=== PATIENT | male | born 1995 | race Hispanic/Latino ===

== ENCOUNTER 2021-03-18 01:08 | Emergency (ER) | payer OTHER ==
[2021-03-18] MEDS ORDERED: ONDANSETRON 4 MG (ODT) TAB ONE (02:39)
--- NOTE | 2021-03-18 03:32 | EDPHYS ---
Physician Documentation [facility] Name: Samuel Maldonado III Age: 25 yrs Sex: Male : 1995 Arrival Date: 03/18/2021 Time: 01:10 Bed 7 Private MD: ED Physician Eddie Randolph HPI: 03/18 01:40 This 25 yrs old Male presents to ER via Wheelchair with complaints of Nose cp Injury. 01:40 The patient or guardian reports pain, swelling, tenderness. The complaints affect the cp right cheek, nose and left cheek. Context of injury: The problem was sustained at a friend's house, resulted from a fall. Onset: The symptoms/episode began/occurred today. 01:40 Associated signs and symptoms: Pertinent positives: laceration of left thumb and use of cp alcohol. Historical: - Allergies: 01:39 No Known Allergies; lp1 - Home Meds: 01:39 None [Active]; lp1 - PMHx: 01:39 None; lp1 - PSHx: 01:39 None; lp1 - Immunization history:: Adult Immunizations up to date. - Social history:: Smoking status: Patient denies any tobacco usage or history of. ROS: 01:45 Constitutional: Negative for body aches, chills, fever, poor PO intake. cp 01:45 ENT: Positive for pain and swelling of nose. cp 01:45 Cardiovascular: Negative for chest pain. 01:45 Respiratory: Negative for shortness of breath. 01:45 Abdomen/GI: Positive for nausea and vomiting, Negative for abdominal pain. 01:45 Skin: Positive for laceration(s), of the cuevas side of left thumb. 01:45 Neuro: Negative for altered mental status, seizure activity. 01:45 All other systems are negative. Exam: 01:50 Constitutional: The patient appears in no acute distress, alert, awake, well developed, cp well nourished, smells of alcohol. 01:50 Head/face: Noted is swelling, that is moderate, of the nose, tenderness, that is cp moderate, of the nose, Sinus tenderness, that is mild, is located over the right maxillary sinus and left maxillary sinus. 01:50 Eyes: Periorbital structures: appear normal, Pupils: equal, round, and reactive to light and accomodation, Extraocular movements: intact throughout, Conjunctiva: normal, no exudate, no injection, Sclera: no appreciated abnormality, Lids and lashes: appear normal, bilaterally. 01:50 ENT: External ear(s): are unremarkable, Ear canal(s): are normal, clear, TM's: dullness, bilaterally, Nose: External nose: deformity is noted, swelling is noted, Nasal septum: deviates to the right, no septal hematoma appreciated, Nasal mucosa: edematous, bleeding, is seen from the right nare, and is minimal, Mouth: Lips: moist, Oral mucosa: pink and intact, moist, Posterior pharynx: Airway: no evidence of obstruction, patent. 01:50 Neck: C-spine: C-collar placed in ED. 01:50 Chest/axilla: Inspection: normal, Palpation: is normal, no crepitus, no tenderness. 01:50 Cardiovascular: Rate: normal, Rhythm: regular. 01:50 Respiratory: the patient does not display signs of respiratory distress, Respirations: normal, no use of accessory muscles, no retractions, labored breathing, is not present, Breath sounds: are clear throughout, no decreased breath sounds, no stridor, no wheezing. 01:50 Abdomen/GI: Inspection: abdomen appears normal, Palpation: abdomen is soft and non-tender, in all quadrants. 01:50 Back: pain, is absent, ROM is normal. 01:50 Neuro: Orientation: to person, place \T\ time. Motor: moves all fours, strength is normal, Sensation: no obvious gross deficits. Vital Signs: 01:38 BP 131 / 97; Pulse 98; Resp 18; Pulse Ox 99% on R/A; Weight 74.84 kg (R); Height 5 ft. lp1 10 in. (177.80 cm); Pain 7/10; 03:57 BP 119 / 71; Pulse 89; Resp 18; Pulse Ox 96% on R/A; lh3 01:38 Body Mass Index 23.67 (74.84 kg, 177.80 cm) lp1 [place] Coma Score: 01:40 Eye Response: spontaneous(4). Verbal Response: oriented(5). Motor Response: obeys cp commands(6). Total: 15. 01:41 Eye Response: spontaneous(4). Verbal Response: oriented(5). Motor Response: obeys lp1 commands(6). Total: 15. Trauma Score (Adult): 01:41 Eye Response: spontaneous(1); Verbal Response: oriented(1); Motor Response: obeys lp1 commands(2); Systolic BP: > 89 mm Hg(4); Respiratory Rate: 10 to 29 per min(4); [place] Score: 15; Trauma Score: 12 MDM: 01:30 Patient medically screened. cp 03:30 Data reviewed: vital signs, nurses notes, radiologic studies, CT scan, and as a result, cp I will discharge patient. 03:30 Counseling: I had a detailed discussion with the patient and/or guardian regarding: the cp historical points, exam findings, and any diagnostic results supporting the discharge/admit diagnosis, radiology results, the need for outpatient follow up, an ENT specialist, to return to the emergency department if symptoms worsen or persist or if there are any questions or concerns that arise at home. 03/18 01:38 Order name: CT Head C Spine cp 03/18 01:38 Order name: CT Facial Bones W/O Con cp 03/18 03:34 Order name: Wound dressing; Complete Time: 03:44 cp Administered Medications: 01:45 Drug: Zofran (Ondansetron) 4 mg Route: PO; lh3 02:47 Follow up: Response: No adverse reaction bs2 Disposition: 03:52 Chart complete. cp 06:42 Co-signature as Attending Physician, Eddie Randolph MD I agree with the assessment and sp3 plan of care. Disposition Summary: 03/18/21 03:31 Discharge Ordered Location: Home cp Problem: new cp Symptoms: have improved cp Condition: Stable cp Diagnosis - Fracture of nasal bones cp - Laceration without foreign body of left thumb without damage to nail, initial cp encounter Followup: cp - With: Vicky Khan MD - When: 2 - 3 days - Reason: nasal bone fracture Discharge Instructions: - Discharge Summary Sheet cp - Nonsutured Laceration Care cp - Nasal Fracture cp Forms: - Medication Reconciliation Form cp - Thank You Letter cp - Antibiotic Education cp - Prescription Opioid Use cp Prescriptions: - Cephalexin 500 mg Oral Capsule - take 1 capsule by ORAL route every 8 hours for 10 days; 30 capsule; Refills: 0, cp Product Selection Permitted - Ibuprofen 800 mg Oral Tablet - take 1 tablet by ORAL route every 8 hours As needed take with food; 30 tablet; cp Refills: 0, Product Selection Permitted Signatures: Dispatcher [employer] Laila Clark, RN RN lp1 Caleb Bose PA PA cp Patel, Setul, MD MD sp3 Amina Ware RN RN lh3 Ely Martinez RN bs2
--- NOTE | 2021-03-18 03:32 | ER ---
Nurse's Notes [facility] Name: Samuel Maldonado III Age: 25 yrs Sex: Male : 1995 Arrival Date: 03/18/2021 Time: 01:10 Bed 7 Private MD: Diagnosis: Fracture of nasal bones;Laceration without foreign body of left thumb without damage to nail, initial encounter Presentation: 03/18 01:30 Acuity: REHANA 2 lp1 01:38 Chief complaint: Parent and/or Guardian states: Mother reports receiving call from lp1 patient's significant other that patient had fallen into a mirror, deformity noted to nose, laceration to left thumb; + ETOH; unknown LOC. Coronavirus screen: At this time, the client does not indicate any symptoms associated with coronavirus-19. Ebola Screen: No symptoms or risks identified at this time. Initial Sepsis Screen: Does the patient meet any 2 criteria? No. Patient's initial sepsis screen is negative. Does the patient have a suspected source of infection? No. Patient's initial sepsis screen is negative. Risk Assessment: Do you want to hurt yourself or someone else? Patient reports no desire to harm self or others. Onset of symptoms was March 18, 2021 at 00:30. 01:38 Method Of Arrival: Wheelchair lp1 Historical: - Allergies: 01:39 No Known Allergies; lp1 - Home Meds: 01:39 None [Active]; lp1 - PMHx: 01:39 None; lp1 - PSHx: 01:39 None; lp1 - Immunization history:: Adult Immunizations up to date. - Social history:: Smoking status: Patient denies any tobacco usage or history of. Screenin:40 Abuse screen: Denies threats or abuse. Denies injuries from another. Nutritional lp1 screening: No deficits noted. Tuberculosis screening: No symptoms or risk factors identified. Fall Risk None identified. Primary Survey: :40 NO uncontrolled hemorrhage observed. A: The patient is alert. Airway: patent, No lp1 supplemental oxygen in use on arrival. Breathing/Chest: Respiratory pattern: regular, Chest inspection: symmetrical rise and fall of the chest. Circulation: Skin temperature: warm, dry. Disability Alert. Exposure/Environment: Obvious injury(ies) are noted at this time: deformity noted to nasal bridge; laceration to left thumb. Assessment: 01:56 Pain: Complains of pain in nose. lh3 03:58 Reassessment: Patient appears in no apparent distress at this time. No changes from lh3 previously documented assessment. Patient and/or family updated on plan of care and expected duration. Pain level reassessed. Patient is alert, oriented x 3, equal unlabored respirations, skin warm/dry/pink. patients wound on left thumb cleaned and dressed. Patient denies pain at this time. Vital Signs: 01:38 BP 131 / 97; Pulse 98; Resp 18; Pulse Ox 99% on R/A; Weight 74.84 kg (R); Height 5 ft. lp1 10 in. (177.80 cm); Pain 7/10; 03:57 BP 119 / 71; Pulse 89; Resp 18; Pulse Ox 96% on R/A; lh3 01:38 Body Mass Index 23.67 (74.84 kg, 177.80 cm) lp1 [place] Coma Score: 01:40 Eye Response: spontaneous(4). Verbal Response: oriented(5). Motor Response: obeys cp commands(6). Total: 15. 01:41 Eye Response: spontaneous(4). Verbal Response: oriented(5). Motor Response: obeys lp1 commands(6). Total: 15. Trauma Score (Adult): 01:41 Eye Response: spontaneous(1); Verbal Response: oriented(1); Motor Response: obeys lp1 commands(2); Systolic BP: > 89 mm Hg(4); Respiratory Rate: 10 to 29 per min(4); [place] Score: 15; Trauma Score: 12 ED Course: 01:10 Patient arrived in ED. bp1 01:25 Caleb Bose PA is PHCP. cp 01:25 Eddie Randolph MD is Attending Physician. cp 01:30 Triage completed. lp1 01:38 Rigid cervical collar applied and checked by physician. lp1 01:39 Arm band placed on. lp1 01:40 Patient has correct armband on for positive identification. lp1 01:41 Patient maintains SpO2 saturation greater than 95% on room air. lp1 02:00 Inserted saline lock: 20 gauge in right forearm, using aseptic technique. Blood lh3 collected. 02:38 CT Facial Bones W/O Con In Process Unspecified. EDMS 02:38 CT Head C Spine In Process Unspecified. EDMS 03:30 Vicky Khan MD is Referral Physician. cp 03:57 No provider procedures requiring assistance completed. lh3 03:57 IV discontinued, intact, bleeding controlled, No redness/swelling at site. Pressure lh3 dressing applied. Administered Medications: 01:45 Drug: Zofran (Ondansetron) 4 mg Route: PO; lh3 02:47 Follow up: Response: No adverse reaction bs2 Outcome: 03:31 Discharge ordered by MD. cp 03:57 Discharged to home ambulatory, with family. lh3 03:57 Condition: good 03:57 Discharge instructions given to patient, family, Instructed on discharge instructions, medication usage, Demonstrated understanding of instructions, follow-up care, medications, Prescriptions given X 2. 03:59 Patient left the ED. 3 Signatures: Dispatcher [employer] EDW[place] Laila Villatoro RN RN lp1 Caleb Bose PA PA cp Anabel Flood Bridget, RN RN bs2 Amina Ware RN RN lh3 Corrections: (The following items were deleted from the chart) 01:39 01:38 Chief complaint: Parent and/or Guardian states: Mother reports receiving call lp1 from patient's significant other that patient had fallen into a mirror, deformity noted to nose, laceration to left thumb; + ETOH lp1
[2021-03-18 04:06] VITALS: BP 119/71; O2SAT 96
--- NOTE | 2021-03-18 12:00 | RAD REPORT ---
EXAM DESCRIPTION: CT - [id number] - 03/18/2021 6:06 am COMPARISON: None. CLINICAL HISTORY: [facility] MAIN PAIN TECHNIQUE: Axial images were obtained from skull base to vertex without intravenous contrast. Imag es viewed on bone and brain windows. Multiplanar reformats were performed. Automated exposure contr ol was utilized on this examination as a dose lowering technique. FINDINGS: Brain parenchyma, ventricles, dura, meninges, and extra-axial spaces: Ventricles and sulci are normal. No abnormal attenuation of brain parenchyma is present. No acute intracranial hemor rhage or abnormal extra-axial fluid collections are present. Vascular structures: No hyperdense arteries or veins. Calvarium, mastoid air cells, paranasal sinuses and orbits: The calvarium is normal. The mastoid air cells are clear. Visualized paranasal sinuses are unremarkable. Orbital structures are unremarkable. EXAM DESCRIPTION: CT Maxillofacial COMPARISON: None. CLINICAL HISTORY: [facility] MAIN PAIN TECHNIQUE: High resolution axial CT images are obtained through the maxillofacial bones without intr avenous contrast followed by multiplanar reformats. Automated exposure control was utilized on this e xamination as a dose lowering technique. FINDINGS: Maxillofacial bones and mandible: Mildly displaced bilateral nasal bone fractures. Orbital structures: Unremarkable. Paranasal sinuses: Clear. Soft tissues: Bilateral paranasal contusions. Visualized intracranial structures: The visualized structures of the skull base are normal. Visualize d intracranial structures are normal. EXAM DESCRIPTION: CT Cervical Spine COMPARISON: None. CLINICAL HISTORY: [facility] MAIN PAIN TECHNIQUE: Axial CT images were obtained through the entire cervical spine without contrast. Sagit jamie and coronal reconstructions are provided. Automated exposure control was utilized on this examina tion as a dose lowering technique. FINDINGS: Vertebrae: Vertebral statures and alignment are normal. No acute fracture, dislocation o r destructive osseous process is present. Spinal canal, foramina, and facet joints: No significant spinal canal or foraminal stenoses. No significant facet arthropathy. Paraspinous soft-tissues: Normal. Thyroid: Normal. Other Findings: None. IMPRESSION: HEAD IMPRESSION: No acute intracranial abnormality. MAXILLOFACIAL IMPRESSION: Mildly displaced bilateral nasal bone fractures with paranasal contusions. C-SPINE IMPRESSION: No acute findings of the cervical spine. Electronically signed by: Johnnie Orozco MD 03/18/2021 2:57 AM CDT Due to temporary technical issues with the PACS/Fluency reporting system, reports are being signed by the in house radiologists without review as a courtesy to insure prompt reporting. The interpreting radiologist is fully responsible for the content of the report.
--- NOTE | 2021-03-18 12:22 | RAD REPORT ---
EXAM DESCRIPTION: CT - Facial Bones W/ Mpr - 03/18/2021 6:05 am COMPARISON: None. CLINICAL HISTORY: [facility] MAIN PAIN TECHNIQUE: Axial images were obtained from skull base to vertex without intravenous contrast. Imag es viewed on bone and brain windows. Multiplanar reformats were performed. Automated exposure contr ol was utilized on this examination as a dose lowering technique. FINDINGS: Brain parenchyma, ventricles, dura, meninges, and extra-axial spaces: Ventricles and sulci are normal. No abnormal attenuation of brain parenchyma is present. No acute intracranial hemor rhage or abnormal extra-axial fluid collections are present. Vascular structures: No hyperdense arteries or veins. Calvarium, mastoid air cells, paranasal sinuses and orbits: The calvarium is normal. The mastoid air cells are clear. Visualized paranasal sinuses are unremarkable. Orbital structures are unremarkable. EXAM DESCRIPTION: CT Maxillofacial COMPARISON: None. CLINICAL HISTORY: [facility] MAIN PAIN TECHNIQUE: High resolution axial CT images are obtained through the maxillofacial bones without intr avenous contrast followed by multiplanar reformats. Automated exposure control was utilized on this e xamination as a dose lowering technique. FINDINGS: Maxillofacial bones and mandible: Mildly displaced bilateral nasal bone fractures. Orbital structures: Unremarkable. Paranasal sinuses: Clear. Soft tissues: Bilateral paranasal contusions. Visualized intracranial structures: The visualized structures of the skull base are normal. Visualize d intracranial structures are normal. EXAM DESCRIPTION: CT Cervical Spine COMPARISON: None. CLINICAL HISTORY: [facility] MAIN PAIN TECHNIQUE: Axial CT images were obtained through the entire cervical spine without contrast. Sagit jamie and coronal reconstructions are provided. Automated exposure control was utilized on this examina tion as a dose lowering technique. FINDINGS: Vertebrae: Vertebral statures and alignment are normal. No acute fracture, dislocation o r destructive osseous process is present. Spinal canal, foramina, and facet joints: No significant spinal canal or foraminal stenoses. No significant facet arthropathy. Paraspinous soft-tissues: Normal. Thyroid: Normal. Other Findings: None. IMPRESSION: HEAD IMPRESSION: No acute intracranial abnormality. MAXILLOFACIAL IMPRESSION: Mildly displaced bilateral nasal bone fractures with paranasal contusions. C-SPINE IMPRESSION: No acute findings of the cervical spine. Electronically signed by: Johnnie Orozco MD 03/18/2021 2:57 AM CDT Due to temporary technical issues with the PACS/Fluency reporting system, reports are being signed by the in house radiologists without review as a courtesy to insure prompt reporting. The interpreting radiologist is fully responsible for the content of the report.
== END 2021-03-18 03:59 | disposition home or self-care (01) ==
LOC: ER 01:08
DX: S02.2XXA Fracture of nasal bones, initial encounter for closed fracture (principal); S61.012A Laceration without foreign body of left thumb without damage to nail, initial encounter; W01.110A Fall on same level from slipping, tripping and stumbling with subsequent striking against sharp glass, initial encounter
CPT/HCPCS: 70450; 70486; 72125; 76377; 99284

== ENCOUNTER 2022-12-21 16:51 | Inpatient (IN) | payer OTHER, SELFPAY ==
--- OUTSIDE RECORDS SUMMARY | 2022-12-21 17:10 | XMS REPORT | Continuity of Care Document ---
:[address] [facility] t Address [address] [place] [address] [address] [place] [address] Care Team Providers Name Role Phone PCP, PATIENT DOES NOT HAVE A Primary Care Physician Unavaila GARRICK Teran Attending Clinician Unavailable Garrick Ayala MD Attending Clinician BLAINE DIXON Attending Clinician Unavailable Blaine Dixon MD Attending Clinician EVANGELINA HAYES Attending Clinician Unavailable Nurse, [facility] Attending Clinician Unavailable Unknown, Attending Attending Clinician Unavailable UNKNOWN, ATTENDING Attending Clinician Unavailable Doctor Unassigned, [place] Attending Clinician Unavailable GARRICK AYALA Admitting Clinician Unavailable BLAINE DIXON Admitting Clinician Unavailable Problems Condition Condition Condition Status Onset Resolution Last Treating Co mments Source Name Details Category Date Date Treatment Clinician Date No known No known Disease Unive rs active active ity of problems problems [facility] Allergies, Adverse Reactions, Alerts Allergy Allergy Status Severity Reaction(s) Onset Inactive Treating Comm ents Source Name Type Date Date Clinician NO KNOWN Drug Active Univers ALLERGIE Class ity of S [facility] Social History Social Habit Start Date Stop Date Quantity Comments Source Exposure to 2022-06-20 2022-06-30 Not sure [facility] SARS-CoV-2 (event) 00:00:00 21:13:00 Medica l Branch Sex Assigned At [birth year] [facility] 00:00:00 00:00:00 Medical Branch Smoking Status Start Date Stop Date Source Tobacco smoking consumption Univ [facility] Medical unknown Branch Medications Ordered Filled Start Stop Current Ordering Indication Dosage Frequency Signature Comments Components Source Medication Medication Date Date Medication? Clinician (SIG) Name Name ketorolac No 60mg 60 mg, Unive rs (TORADOL) 07-01 Intramuscu ity of injection 05:15: 05:15 lar, ONCE, [place] 60 mg 00 :00 1 dose, On Medical Mon Branch 06/30/22 at 2315, Routine iopamidol 2021-05 No [id number] 74mL 74 mL, U nivers (ISOVUE 06-09 Intravenou ity o f 370-500 mL) 02:45: 02:45 s, ONCE, 1 [place] injection 00 :00 dose, On Medica l 74 mL [facility] Branch 04/08/22 at 2045, Routine ketorolac 2021-05 No 30mg 30 mg, Unive rs (TORADOL) 06-09 Slow IV ity of injection 01:30: 00:46 Push, [place] 30 mg 00 :00 ONCE, 1 Medical dose, On Branch [facility] 04/08/22 at 1930, [place] ondansetron 2021-05 No 4mg 4 mg, Slow Univers (ZOFRAN 06-09 IV Push, ity of (PF)) 00:45: 00:46 ONCE, 1 [place] injection 4 00 :00 dose, On Medi sugar mg [facility] 04/08/22 at 1845, [place] traMADoL 50 2021-05 Yes [id number] 50mg Take 1 Univ ers mg tablet 1-22 tablet by ity o f 00:00: mouth [place] 00 every 6 Medical (six) Branch hours as needed (pain). Indication s: acute pain traMADoL 50 2021-05 Yes 4647 50mg Take 1 Univ ers mg tablet 1-22 tablet by ity o f 00:00: mouth [place] 00 every 6 Medical (six) Branch hours as needed (pain). Indication s: acute pain predniSONE 2021-05- No [id number] 40mg Take 2 Univers 20 mg -22 11-30 tablets by ity of tablet 00:00: 05:59 mouth in [place] 00 :00 the Medical morning Branch for 7 days. Vital Signs Vital Name Observation Time Observation Value Comments Source Systolic blood 2022-07-01 03:12:00 137 mm[Hg] Univer sity of pressure [place] [facility] Diastolic blood 2022-07-01 03:12:00 87 mm[Hg] Unive rsity of pressure [place] [facility] Heart rate 2022-07-01 03:12:00 75 /min [facility] [place] [facility] Body temperature 2022-07-01 03:12:00 37 Cynthia [facility] [place] [facility] Respiratory rate 2022-07-01 03:12:00 18 /min [facility] [place] [facility] Body height 2022-07-01 03:12:00 175.3 cm [facility] [place] [facility] Body weight 2022-07-01 03:12:00 63.504 kg [facility] [place] [facility] BMI 2022-07-01 03:12:00 20.67 kg/m2 [facility] [place] [facility] Oxygen saturation in 2022-07-01 03:12:00 100 /min University of Arterial blood by [place] iZ3D sugar Pulse oximetry Branch Systolic blood 2022-04-09 02:46:00 146 mm[Hg] Univer sity of pressure [place] [facility] Diastolic blood 2022-04-09 02:46:00 77 mm[Hg] Unive rsity of pressure [place] [facility] Heart rate 2022-04-09 02:46:00 97 /min [facility] [place] [facility] Respiratory rate 2022-04-09 02:46:00 18 /min [facility] [place] [facility] Oxygen saturation in 2022-04-09 02:46:00 100 /min University of Arterial blood by [place] iZ3D sugar Pulse oximetry Branch Body temperature 2022-04-09 00:16:00 36.83 Cynthia [facility] [place] [facility] Body height 2022-04-09 00:16:00 177.8 cm [facility] [place] [facility] Body weight 2022-04-09 00:16:00 63.504 kg [facility] [place] [facility] BMI 2022-04-09 00:16:00 20.09 kg/m2 [facility] [place] [facility] Systolic blood 2022-04-08 23:50:00 137 mm[Hg] Univer sity of pressure [place] [facility] Diastolic blood 2022-04-08 23:50:00 91 mm[Hg] Unive rsity of pressure [place] [facility] Heart rate 2022-04-08 23:50:00 71 /min [facility] [place] [facility] Body temperature 2022-04-08 23:50:00 36.33 Cynthia [facility] Respiratory rate 2022-04-08 23:50:00 16 /min [facility] Body weight 2022-04-08 23:50:00 65.681 kg [facility] Oxygen saturation in 2022-04-08 23:50:00 99 /min University [facility] blood by [facility] Pulse oximetry Branch Procedures Procedure Date / Time Performed Performing Clinician Sour e EKG-12 LEAD 2022-07-01 04:43:34 Garrick Ay[facility] CONSENT/REFUSAL FOR 2022-07-01 02:56:01 [facility] Branch TREATMENT EKG-12 LEAD 2022-04-09 02:30:59 Blaine Dixon [facility] CT CHEST PULMONARY 2022-04-09 01:54:21 Blaine Dixon [facility] ANGIOGRAM Medical Branch XR CHEST 2 VW 2022-04-09 01:05:03 [facility] TROPONIN I 2022-04-09 00:45:00 [facility] COMP. METABOLIC PANEL 2022-04-09 00:45:00 Blaine Dixon [facility] ([id number]) [facility] CBC WITH DIFF 2022-04-09 00:45:00 Blaine Dixon [facility] D-DIMER 2022-04-09 00:45:00 Blaine [facility] NOTICE OF PRIVACY 2022-04-09 00:09:29 Doctor Unassigned, No [facility] PRACTICES Name Medical Branch CONSENT/REFUSAL FOR 2022-04-09 00:08:39 Doctor Unassigned, No [facility] [place] DIAGNOSIS AND Name Medical Branch TREATMENT CONSENT/REFUSAL FOR 2022-04-08 23:40:52 [facility], [facility] Name Medical Branch TREATMENT Encounters Start End Encounter Admission Attending Care Care Encounter Source Date/Time Date/Time Type Type Clinicians Facility Department ID 2022-06-30 2022-06-30 Emergency X DEL AYALA ERT [id number] Univers 21:14:00 22:56:00 GARRICK ity [facility] 2022-06-30 2022-06-30 [facility] [id number] Univers 21:14:00 22:56:00 Garrick BLOCK [id number] ity [facility] [id number] [id number] [address] 2022-04-08 2022-04-08 Emergency X [facility] ERT [id number] Univers 18:17:00 20:50:00 BLAINE jordin [facility] 2022-04-08 2022-04-08 Emergency [facility] [id number] Univers 18:17:00 20:50:00 Blaine BLOCK [id number] ity [facility] [id number] [facility] [id number] [address] 2022-04-08 2022-04-08 Outpatient R FREDDY, [facility] [id number] Univers 17:45:00 17:50:44 EVANGELINA [facility] 2022-04-08 2022-04-08 Nurse Nurse, [facility] [id number] Univers 17:45:00 17:50:44 Visit Unknown, Attending [facility] [id number] [facility] 4.2.7.2.686 Robin as FROYLAN?BLEA [id number] Mo rikki [address] MEDICAL OFFICE BUILDING 2022-04-08 2022-04-08 Outpatient R UNKNOWN, [facility] [id number] Univers 17:40:00 17:40:00 ATTENDING ity [facility] 2022-04-08 2022-04-08 Orders Doctor ASKEW [id number] Univers 00:00:00 00:00:00 Only Unassigned, LORENA [id number] ity of [place] [facility] 4.2.7.2.686 Robin as [id number] [address] Results Test Description Test Time Test Comments Results Result Comments Source TROPONIN I 2022-04-09 01:25:55 Test Item Value Reference Range Interpretation Comme nts TROPONIN I (test code = 0.002 ng/mL See_Comment [Au tomated message] The 3783326595) system which ge nerated this result tra nsmitted reference range : <=0.034. The reference r aby was not used to int erpret this result as normal/abnormal . FELICITA (test code = FELICITA) Reference (Normal) Range (defined by the 99th percentile reference limit): <= 0.034 ng/mL Note: Cardiac troponin begins to rise 3-4 hours after the onset of ischemia. Repeat in 4-6 hours if the sample was drawn within 3-4 hours of the onset of the symptom and found normal. Diagnosis of myocardial injury is made with acute changes in cTn concentrations with at least one serial sample above the 99th percentile upper reference limit (URL), taken together with the patient's clinical presentation. Biotin has been reported to cause a negative bias, interpret results relative to patient's use of biotin. Lab Interpretation Normal (test code = 21321-4) [facility]. METABOLIC PANEL (16353)2022-04-09 01:15:55 Test Item Value Reference Range Interpretation Comments NA (test code = 139 mmol/L 135-145 3555707123) K (test code = 4.0 mmol/L 3.5-5.0 6793992056) CL (test code = 100 mmol/L 98-108 8744846216) CO2 TOTAL (test code = 29 mmol/L 23-31 1890367862) AGAP (test code = 2-16 6175313537) BUN (test code = 19 mg/dL 7-23 2275167101) GLUCOSE (test code = 134 mg/dL 70-110 H 4052051834) CREATININE (test code = 1.20 mg/dL 0.60-1.25 4296384358) TOTAL BILI (test code = 0.3 mg/dL 0.1-1.0 1835786541) CALCIUM (test code = 9.4 mg/dL 8.6-10.6 6365639483) T PROTEIN (test code = 6.8 g/dL 6.3-8.2 6489295324) ALBUMIN (test code = 4.6 g/dL 3.5-5.0 1826698997) ALK PHOS (test code = 75 U/L 34-122 5048673246) ALTv (test code = 19 U/L 5-50 1742-6) AST(SGOT) (test code = 22 U/L 13-40 1905230155) eGFR (test code = mL/min/1.73m2 6116827138) FELICITA (test code = FELICITA) Association of Glomerular Filtration Rate (GFR) and Staging of Kidney Disease* + --+ --+ ------+| GFR (mL/min/1.73 m2) ?| With Kidney Damage ?| ?Without Kidney Damage+ --------+ --------+ +| ?>90 ?| ?Stage one ?| ? Normal ?+ ---+ ---+ -------+| ?60-89 ?| ?Stage two ?| ? Decreased GFR ? + --+ --+ ------+| ?30-59 ?| ?Stage three ?| ? Stage three ? + --+ --+ ------+| ?15-29 ?| ?Stage four ? | ? Stage four ?+ ---+ ---+ -------+| ?<15 (or dialysis) ? ?| ?Stage five ? | ? Stage five ?+ ---+ ---+ -------+ *Each stage assumes the associated GFR level has been in effect for at least three months. ?Stages 1 to 5, with or without kidney disease, indicate chronic kidney disease. Notes: Determination of stages one and two (with eGFR >59mL/min/1.73 m2) requires estimation of kidney damage for at least three months as defined by structural or functional abnormalities of the kidney, manifested by either:Pathological abnormalities or Markers of kidney damage (including abnormalities in the composition of the blood or urine or abnormalities in imaging tests). Lab Interpretation Abnormal (test code = 52181-4) [id number] Test Item Value Reference Interpretation Comments Range D-DIMER (test code = See_Comment H [Autom ated [id number]) message] The system which generated this result transmitted reference range : <0.41 ?g/mL (FEU). The reference range was not used to interpret this result as normal/abnormal . FELICITA (test code = This test may be FELICITA) used in conjunction with a clinical pretest probability (PTP) assessment model to exclude venous thromboembolism (VTE) in patients suspected of deep venous thrombosis (DVT) and pulmonary embolism (PE) A D-Dimer value less than 0.50 ?g/ml (FEU) has a negative predicative value of 96 to 100% (95% CI)and 97 to 100% (95% CI) as an aid in the diagnosis of deep vein thrombosis (DVT) and pulmonary embolism when there is low or moderate pretest probability of PE or DVT. D-Dimer values are expressed in initial fibrinogen equivalent units (FEU)" The assay results should be used with other information, including the clinical context, in forming a diagnosis. Lab Interpretation Abnormal (test code = 75426-6) [facility] WITH [id number] 01:04:09 Test Item Value Reference Range Interpretation Comments WBC (test code = See_Comment H [Automated 5635-2) message] The system which generated this result transmit jeni reference range : 4.20 - 10.70 10*3/?L. The reference range was not used to interpret this result as normal/abnormal . RBC (test code = See_Comment [Automated 909-8) message] The system which generated this result transmit jeni reference range : 4.26 - 5.52 10*6/?L. The reference range was not used to interpret this result as normal/abnormal . HGB (test code = 14.4 g/dL 12.2-16.4 718-7) HCT (test code = 40.3 % 38.4-49.3 4544-3) MCV (test code = 92.6 fL 81.7-95.6 787-2) MCH (test code = 33.1 pg 26.1-32.7 H 785-6) MCHC (test code = 35.7 g/dL 31.2-35.0 H 786-4) RDW-SD (test code = 41.0 fL 38.5-51.6 25362-6) RDW-CV (test code = 11.9 % 12.1-15.4 L 788-0) PLT (test code = See_Comment [Automated 237-3) message] The system which generated this result transmit jeni reference range : 150 - 328 10*3/ ?L. The reference range was not u sed to interpret th is result as normal/abnormal . MPV (test code = 10.3 fL 9.8-13.0 66821-5) NRBC/100 WBC (test See_Comment [Automat ed code = 1994262405) message] The system which generated this result transmit jeni reference range : 0.0 - 10.0 /100 WBCs. The reference range was not used to interpret this result as normal/abnormal . NRBC x10^3 (test code See_Comment [Auto mated = 6488452064) message] The system which generated this result transmit jeni reference range : 10*3/?L. The reference range was not used to interpret this result as normal/abnormal . GRAN MAT (NEUT) % 83.9 % (test code = 770-8) IMM GRAN % (test code 0.40 % = 0696185841) LYMPH % (test code = 10.5 % 736-9) MONO % (test code = 4.7 % 5905-5) EOS % (test code = 0.3 % 713-8) BASO % (test code = 0.2 % 706-2) GRAN MAT x10^3(ANC) 10.08 10*3/uL 1.99-6.95 H (test code = 9588800573) IMM GRAN x10^3 (test 0.05 10*3/uL 0.00-0.06 code = 8865106160) LYMPH x10^3 (test code 1.26 10*3/uL 1.09-3.23 = 731-0) MONO x10^3 (test code 0.57 10*3/uL 0.36-1.02 = 742-7) EOS x10^3 (test code = 0.04 10*3/uL 0.06-0.53 L 711-2) BASO x10^3 (test code 0.03 10*3/uL 0.01-0.09 = 704-7) Lab Interpretation Abnormal (test code = 25235-6) [facility]
[2022-12-21] MEDS ORDERED: ONDANSETRON 4 MG/2 ML VIAL ONE ×2 (17:19→17:24)
[2022-12-21] MEDS ORDERED: KETOROLAC 30 MG/ML INJ ONE ×2 (17:19→17:24)
[2022-12-21] MEDS ORDERED: NA CHLORIDE 0.9% 0 ML ONE (17:19)
[2022-12-21] MEDS ORDERED: FAMOTIDINE 20 MG/2 ML VIAL IV ONE ×2 (17:19→17:24)
[2022-12-21] MEDS ORDERED: NA CHLORIDE 0.9% 1,000 ML ONE (17:24)
[2022-12-21 17:27] LABS: Absolute Lymphocytes (CBC) 1.1 K/uL (0.7-4.9); Hematocrit 47.4 % (39.6-49.0); Lymphocytes % 11.1 % (15.3-44.8); Platelets 286 thou/uL (152-406); RBC Red Blood Cell Count 5.04 M/uL (4.33-5.43)
[2022-12-21 17:34] LABS: Urine Bacteria None Seen /HPF (<20); Urine Bilirubin 3+ (Negative); Urine Blood Negative (Negative); Urine Clarity Clear (Clear); Urine Color Dark-Yellow (Yellow); Urine Glucose NEGATIVE (Negative); Urine Mucus 1+ /HPF (None Seen); Urine Protein 1+ (Negative); Urine RBC <5 /HPF (None Seen); Urine Urobilinogen 2+ (Normal)
--- NOTE | 2022-12-21 17:40 | RAD REPORT ---
EXAM DESCRIPTION: Oj Single View12/21/2022 5:29 pm CLINICAL HISTORY: Chest pain COMPARISON: 2008 FINDINGS: The lungs appear clear of acute infiltrate. The heart is normal size IMPRESSION: No acute abnormalities displayed
[2022-12-21 18:03] LABS: Albumin 4.2 g/dL (3.4-5.0); Bilirubin Total 3.3 mg/dL (0.2-1.0); Potassium 3.8 mEq/L (3.5-5.1); Protein, Total 8.5 g/dL (6.4-8.2)
--- NOTE | 2022-12-21 18:45 | RAD REPORT ---
EXAM DESCRIPTION: CT - Abdomen Pelvis W Contrast - 12/21/2022 6:23 pm CLINICAL HISTORY: Abdominal pain COMPARISON: none. TECHNIQUE: Computed axial tomography of the abdomen pelvis was obtained. 100 cc Isovue-300 was admin istered intravenously. Oral contrast was not requested which limits evaluation of bowel and appendix All CT scans are performed using dose optimization technique as appropriate and may include automated exposure control or mA/KV adjustment according to patient size. FINDINGS: Small gallstones. 2.5 centimeter density gallbladder fundus Gallbladder wall is mildly thi ckened. Mild dilatation intra and extrahepatic biliary tree Spleen, pancreas, adrenals and kidneys are unremarkable. Normal appendix. No evidence of diverticulitis. IMPRESSION: Cholelithiasis. Thickened gallbladder wall probably cholecystitis 2.5 centimeter density gallbladder fundus could represent sludge ball, mass or additional stones Mild dilatation of the intra and extrahepatic biliary tree
--- NOTE | 2022-12-21 19:23 | EDPHYS ---
Physician Documentation [facility] Name: Samuel Maldonado III Age: 27 yrs Sex: Male : 1995 Arrival Date: 12/21/2022 Time: 16:51 Bed 8 Private MD: ED Physician Chai Alvarado HPI: 12/21 19:20 This 27 yrs old Male presents to ER via Ambulatory with complaints of kb Abdominal Pain, Nausea/Vomiting/Diarrhea, Shortness Of Breath. 19:20 The patient presents with abdominal pain in the right upper quadrant. Onset: The kb symptoms/episode began/occurred 5 day(s) ago. The symptoms do not radiate. Associated signs and symptoms: Pertinent positives: nausea, vomiting, and diarrhea, Pertinent negatives: fever. The symptoms are described as constant. Modifying factors: The symptoms are alleviated by nothing, the symptoms are aggravated by nothing. Severity of pain: At its worst the pain was moderate in the emergency department the pain is unchanged. The patient has not experienced similar symptoms in the past. The patient has not recently seen a physician. Historical: - Allergies: 16:59 No Known Allergies; mb9 - Home Meds: 16:59 None [Active]; mb9 - PMHx: 16:59 Hypertensive disorder; mb9 - PSHx: 16:59 None; mb9 - Immunization history:: Adult Immunizations up to date. - Social history:: Smoking status: Reported history of juuling and/or vaping. ROS: 19:15 Constitutional: Negative for fever, chills, and weight loss. kb 19:15 Abdomen/GI: Positive for abdominal pain, nausea, vomiting, and diarrhea, Negative for constipation, abdominal cramps, abdominal distension. 19:15 All other systems are negative. Exam: 19:15 Constitutional: This is a well developed, well nourished patient who is awake, alert, kb and in no acute distress. Head/Face: Normocephalic, atraumatic. ENT: Moist Mucous membranes Cardiovascular: Regular rate and rhythm with a normal S1 and S2. No gallops, murmurs, or rubs. No pulse deficits. Respiratory: Respirations even and unlabored. No increased work of breathing. Talking in full sentences Skin: Warm, dry with normal turgor. Normal color. MS/ Extremity: Pulses equal, no cyanosis. Neurovascular intact. Full, normal range of motion. Neuro: Awake and alert, GCS 15, oriented to person, place, time, and situation. Moves all extremities. Normal gait. 19:15 Abdomen/GI: Inspection: abdomen appears normal, Bowel sounds: normal, Palpation: soft, in all quadrants, moderate abdominal tenderness, in the right upper quadrant and right lower quadrant. Vital Signs: 16:57 BP 144 / 98; Pulse 70; Resp 18; Temp 98.3; Pulse Ox 100% on R/A; Weight 66.22 kg; mb9 Height 5 ft. 10 in. ; 18:39 BP 130 / 85; Pulse 60; Resp 19 S; Pulse Ox 100% on R/A; kc6 19:30 BP 132 / 90; Pulse 63; Resp 16; Pulse Ox 97% on R/A; jb4 20:30 BP 123 / 77; Pulse 66; Resp 16; Pulse Ox 99% on R/A; jb4 16:57 Body Mass Index 20.95 (66.22 kg, 177.8 cm) mb9 MDM: 17:00 Patient medically screened. kb 19:17 Differential diagnosis: appendicitis, cholecystitis, Cholelithiasis, gastritis, kb gastroesophageal reflux disease, non-specific abd pain, pancreatitis. Data reviewed: vital signs, nurses notes. Consideration of Admission/Observation Patient was admitted/placed on observation. Escalation of care including admission/observation considered. Management of patient was discussed with the following: Hospitalist: ROYAL Calzada accepts pt for admission under Dr Varner. Legal Administrator: Dr Fontanez accepts pt for consult. NPO after midnight in preparation for surgery tomorrow. Counseling: I had a detailed discussion with the patient and/or guardian regarding: the historical points, exam findings, and any diagnostic results supporting the discharge/admit diagnosis, lab results, radiology results, the need for further work-up and treatment in the hospital. 12/21 17:04 Order name: CBC with Diff; Complete Time: 17:29 kb 12/21 17:04 Order name: CMP; Complete Time: 18:09 kb 12/21 17:04 Order name: Lipase; Complete Time: 18:09 kb 12/21 17:04 Order name: Urinalysis w/ reflexes; Complete Time: 17:44 kb 12/21 17:04 Order name: CT Abd/Pelvis - IV Contrast Only; Complete Time: 18:45 kb 12/21 17:04 Order name: Chest Single View XRAY; Complete Time: 17:44 kb 12/21 18:09 Order name: US Abdomen Limited; Complete Time: 19:28 kb 12/21 17:04 Order name: IV Saline Lock; Complete Time: 17:26 kb 12/21 17:04 Order name: Labs collected and sent; Complete Time: 17:26 kb Administered Medications: 17:27 Drug: NS 0.9% IV 1000 ml Route: IV; Rate: 1 bolus; Site: right antecubital; kc6 19:20 Follow up: Response: No adverse reaction; IV Status: Completed infusion; IV Intake: kc6 1000ml 17:27 Drug: Famotidine IVP 20 mg Route: IVP; Site: right antecubital; kc6 18:41 Follow up: Response: No adverse reaction kc6 17:27 Drug: TORadol - Ketorolac IVP 15 mg Route: IVP; Site: right antecubital; kc6 18:41 Follow up: Response: No adverse reaction; Pain is decreased kc6 17:27 Drug: Ondansetron IVP 4 mg Route: IVP; Site: right antecubital; kc6 18:41 Follow up: Response: No adverse reaction kc6 19:36 Drug: Piperacillin-Tazobactam IVPB 3.375 grams Route: IVPB; Infused Over: 60 mins; jb4 Site: right antecubital; 20:26 Drug: HYDROmorphone IVP 0.5 mg Route: IVP; Site: right antecubital; jb4 Disposition Summary: 12/21/22 19:22 Hospitalization Ordered Hospitalization Status: Observation kb Provider: Farhad Varner Location: Telemetry/MedSur (observation) kb Condition: Stable kb Problem: new kb Symptoms: are unchanged kb Bed/Room Type: Standard Room Assignment: 210(12/21/22 20:33) Diagnosis - Other cholelithiasis without obstruction kb - Acute cholecystitis kb - Abnormal results of liver function studies kb Forms: - Medication Reconciliation Form kb - SBAR form kb Addendum: 12/26/2022 07:02 Co-signature as Attending Physician, Chai Alvarado MD I reviewed the patient's care r t provided by the Advanced Practice Provider and agree with the diagnosis and treatment plan. Signatures: Dispatcher [employer] Sana Tomlin, WINSTONC TEST FIXTURE DESIGNER-Ckb Zheng Redmond FNP-C FNP-Cla1 Monisha Collins, KALEIGH RN cg Alexsander Galicia RN RN jb4 Luana Singer RN RN kc6 Lala Calzada RN RN mb9 Chai Alvarado MD MD rt Corrections: (The following items were deleted from the chart) 12/21 20:33 19:22 kb
--- NOTE | 2022-12-21 19:23 | ER ---
Nurse's Notes [facility] Name: Samuel Maldonado III Age: 27 yrs Sex: Male : 1995 Arrival Date: 12/21/2022 Time: 16:51 Bed 8 Private MD: Diagnosis: Other cholelithiasis without obstruction;Acute cholecystitis;Abnormal results of liver function studies Presentation: 12/21 16:57 Chief complaint: Patient states: "I went cold turkey off of Meth 6 days ago after mb9 taking it for the past 1.5 years. This is the 5th time i've tried to stop. I've been N/V/D for the past 3 days. I can't keep anything down. My urine is orange. I have SOB and intermittent dizziness". Coronavirus screen: Vaccine status: Patient reports being unvaccinated. Ebola Screen: No symptoms or risks identified at this time. Initial Sepsis Screen: Does the patient meet any 2 criteria? No. Patient's initial sepsis screen is negative. Does the patient have a suspected source of infection? No. Patient's initial sepsis screen is negative. Risk Assessment: Do you want to hurt yourself or someone else? Patient reports no desire to harm self or others. Onset of symptoms was 2022. 16:57 Method Of Arrival: Ambulatory 9 16:57 Acuity: REHANA 3 mb9 Triage Assessment: 17:00 General: Appears uncomfortable, Behavior is cooperative. Pain: Complains of pain in mb9 chest. Neuro: Torres Agitation-Sedation Scale (RASS): 0 - Alert and Calm Level of Consciousness is awake, alert, obeys commands, Oriented to person, place, time, situation, Appropriate for age. Neuro: Reports dizziness. Respiratory: Airway is patent Respiratory effort is even, unlabored, Respiratory pattern is regular, symmetrical. Respiratory: Reports shortness of breath. GI: Reports diarrhea, nausea, vomiting. Derm: Skin is pink, warm \\T\\ dry. Musculoskeletal: Range of motion: intact in all extremities. Historical: - Allergies: 16:59 No Known Allergies; mb9 - Home Meds: 16:59 None [Active]; mb9 - PMHx: 16:59 Hypertensive disorder; mb9 - PSHx: 16:59 None; mb9 - Immunization history:: Adult Immunizations up to date. - Social history:: Smoking status: Reported history of juuling and/or vaping. Screenin:31 [facility] ED Fall Risk Assessment (Adult) History of falling in the last 3 months, kc6 including since admission No falls in past 3 months (0 pts) Confusion or Disorientation No (0 pts) Intoxicated or Sedated No (0 pts) Impaired Gait No (0 pts) Mobility Assist Device Used No (0 pt) Altered Elimination No (0 pt) Score/Fall Risk Level 0 - 2 = Low Risk. Abuse screen: Denies threats or abuse. Denies injuries from another. Nutritional screening: No deficits noted. Tuberculosis screening: No symptoms or risk factors identified. Assessment: 17:29 General: Appears in no apparent distress. uncomfortable, Behavior is calm, cooperative, kc6 appropriate for age. Pain: Complains of pain in right upper quadrant and right lower quadrant. Neuro: Torres Agitation-Sedation Scale (RASS): 0 - Alert and Calm Level of Consciousness is awake, alert, obeys commands, Oriented to person, place, time, situation, Appropriate for age. Cardiovascular: Capillary refill < 3 seconds. Respiratory: Reports shortness of breath Airway is patent Trachea midline Respiratory effort is even, unlabored, Respiratory pattern is regular, symmetrical. GI: Abdomen is flat, non-distended, Abd is soft X 4 quads Abdomen is tender to palpation in right upper quadrant and right lower quadrant Reports lower abdominal pain, upper abdominal pain, diarrhea, intolerance of fluids, intolerance of food, nausea, vomiting. : No signs and/or symptoms were reported regarding the genitourinary system. Urine is blood tinged. EENT: No signs and/or symptoms were reported regarding the EENT system. Derm: No signs and/or symptoms reported regarding the dermatologic system. Skin is intact, is healthy with good turgor, Skin is pink, warm \\T\\ dry. Musculoskeletal: No signs and/or symptoms reported regarding the musculoskeletal system. Circulation, motion, and sensation intact. Capillary refill < 3 seconds, Range of motion: intact in all extremities. 18:39 Reassessment: Patient appears in no apparent distress at this time. No changes from kc6 previously documented assessment. Patient and/or family updated on plan of care and expected duration. Pain level reassessed. Patient is alert, oriented x 3, equal unlabored respirations, skin warm/dry/pink. Vital Signs: 16:57 BP 144 / 98; Pulse 70; Resp 18; Temp 98.3; Pulse Ox 100% on R/A; Weight 66.22 kg; mb9 Height 5 ft. 10 in. ; 18:39 BP 130 / 85; Pulse 60; Resp 19 S; Pulse Ox 100% on R/A; kc6 19:30 BP 132 / 90; Pulse 63; Resp 16; Pulse Ox 97% on R/A; jb4 20:30 BP 123 / 77; Pulse 66; Resp 16; Pulse Ox 99% on R/A; jb4 16:57 Body Mass Index 20.95 (66.22 kg, 177.8 cm) mb9 ED Course: 16:57 Patient arrived in ED. mb9 16:59 Triage completed. mb9 17:00 [facility] kb 17:00 Chai Alvarado MD is Attending Physician. kb 17:00 Arm band placed on. mb9 17:10 Luana Singer RN is Primary Nurse. kc6 17:27 Inserted saline lock: 20 gauge in right antecubital area, using aseptic technique. kc6 Blood collected. 17:31 Chest Single View XRAY In Process Unspecified. EDMS 17:31 Patient has correct armband on for positive identification. Bed in low position. Call kc6 light in reach. Side rails up X2. Adult w/ patient. 18:25 CT Abd/Pelvis - IV Contrast Only In Process Unspecified. EDMS 18:49 US Abdomen Limited In Process Unspecified. EDMS 19:00 Report given to Hiral Vincent RN \\T\\ KALEIGH Mullins. kc6 19:22 Farhad Varner MD is Hospitalizing Provider. kb 21:19 No provider procedures requiring assistance completed. Patient admitted, IV remains in jb4 place. Administered Medications: 17:27 Drug: NS 0.9% IV 1000 ml Route: IV; Rate: 1 bolus; Site: right antecubital; kc6 19:20 Follow up: Response: No adverse reaction; IV Status: Completed infusion; IV Intake: kc6 1000ml 17:27 Drug: Famotidine IVP 20 mg Route: IVP; Site: right antecubital; kc6 18:41 Follow up: Response: No adverse reaction kc6 17:27 Drug: TORadol - Ketorolac IVP 15 mg Route: IVP; Site: right antecubital; kc6 18:41 Follow up: Response: No adverse reaction; Pain is decreased kc6 17:27 Drug: Ondansetron IVP 4 mg Route: IVP; Site: right antecubital; kc6 18:41 Follow up: Response: No adverse reaction kc6 19:36 Drug: Piperacillin-Tazobactam IVPB 3.375 grams Route: IVPB; Infused Over: 60 mins; jb4 Site: right antecubital; 20:26 Drug: HYDROmorphone IVP 0.5 mg Route: IVP; Site: right antecubital; jb4 Intake: 19:20 IV: 1000ml; Total: 1000ml. kc6 Outcome: 19:22 Decision to Hospitalize by Provider. kb 21:19 Admitted to Med/surg accompanied by nurse, via wheelchair, room 210, with chart, Report jb4 called to KALEIGH Magallanes 21:19 Condition: stable 21:19 Discharge instructions given to patient, Instructed on the need for admit, Demonstrated understanding of instructions. 21:20 Patient left the ED. jb4 Signatures: Dispatcher [employer] EDMS Sana Rosales, [facility]-CkAlexsander Esquivel RN RN jb4 Luana Singer RN RN kc6 Lala Calzada, RN RN mb9 Corrections: (The following items were deleted from the chart) 17:03 16:57 Chief complaint: Patient states: "I went cold turkey off of Meth 6 days ago. I've mb9 been N/V/D for the past 3 days. I can't keep anything down. My urine is orange. I have SOB and intermittent dizziness" mb9
[2022-12-21] MEDS ORDERED: PIPERACIL/TAZO 3.375 GM VIAL IV ONE (19:25)
[2022-12-21] MEDS ORDERED: NA CHLORIDE 0.9% 100 ML ONE (19:25)
--- NOTE | 2022-12-21 19:25 | RAD REPORT ---
EXAM DESCRIPTION: US - Abdomen Exam Limited - 12/21/2022 6:48 pm CLINICAL HISTORY: Abdominal pain. COMPARISON: CT December 21, 2022 FINDINGS: Several tiny gallstones. 3.5 centimeter mass within the gallbladder fundus. Gallbladder wa ll is mildly thickened. Dilatation of the intra and extrahepatic biliary tree IMPRESSION: 3.5 centimeter gallbladder mass may represent neoplasm. Several tiny gallstones Mildly thickened gallbladder wall probably cholecystitis Dilatation of the intra and extrahepatic biliary tree
--- NOTE | 2022-12-21 20:32 | P.HP ---
Certification for Inpatient Patient admitted to: Inpatient With expected LOS: >2 Midnights Patient will require the following post-hospital care: None Practitioner: I am a practitioner with admitting privileges, knowledge of patient current condition, hospital course, and medical plan of care. Services: Services provided to patient in accordance with Admission requirements found in Title 42 Section 412.3 of the Code of Federal Regulations Patient History Date of Service: 12/21/22 Reason for admission: Cholecystitis, elevated LFTs History of Present Illness: 27-year-old male with history of amphetamine usecurrently clean for 6 days presents emergency department with chief complaint of right upper quadrant Pain which started about 5 days ago. He was evaluated in the emergency department his labs are significant for AST 159 ALT 524 alk phos 156 T. bili 3.3 he does have scleral icterus, CT shows cholelithiasis, thickened gallbladder wall proba arleth cholecystitis, 2.5 cm density gallbladder findings could represent sludge ball, mass or additional stones. Mild dilatation of intra and extrahepatic biliary tree. Follow-up ultrasound was performed which revealed 3.5 cm gallbladder mass may represent neoplasm. Several tiny gallstones. Mildly thickened gallbladder wall probably cholecystitis. Dilatation of the intra and extrahepatic biliary tree. ED provider discussed case with general surgery who will see patient likely for cholecystectomy with intraoperative cholangiogram. Patient started on antibiotics/Zosyn will remain n.p.o. Did discuss findings on ultrasound including possibility of gallbladder neoplasm with patient. - Past Medical/Surgical History -: Amphetamine use -: None Psychosocial/ Personal History: Patient notes at home with significant other - Family History Family History: Reviewed- Non-Contributory - Social History Smoking Status: Never smoker Alcohol use: No CD- Drugs: No Caffeine use: Yes Place of Residence: Home Review of Systems 10-point ROS is otherwise unremarkable Gastrointestinal: Nausea, Vomiting, Abdominal Pain Physical Examination - Physical Exam General: Alert, In no apparent distress, Oriented x3 HEENT: Atraumatic, PERRLA, Mucous membr. moist/pink, EOMI, Sclerae nonicteric Neck: Supple, 2+ carotid pulse no bruit, No LAD, Without JVD or thyroid abnormality Respiratory: Clear to auscultation bilaterally, Normal air movement Cardiovascular: Regular rate/rhythm, Normal S1 S2 Capillary refill: <2 Seconds Gastrointestinal: Normal bowel sounds, No rebound, No guarding, Tenderness (Moderate right upper quadrant tenderness) Musculoskeletal: No tenderness Integumentary: No rashes Neurological: Normal speech, Normal strength at 5/5 x4 extr, Normal tone, Normal affect - Studies Laboratory Data (last 24 hrs) 12/21/22 12/21/22 17:19 17:19 WBC 9.80 Hgb 16.0 Hct 47.4 Plt Count 286 Sodium 136 Potassium 3.8 BUN 12 Creatinine 0.99 Glucose 106 Total Bilirubin 3.3 H AST 159 H ALT 524 H Alkaline Phosphatase 156 H Lipase 23 Assessment and Plan - Plan Assessment: Cholecystitis, elevated LFTs, concern for choledocholithiasis History of amphetamine abuse Plan: Cholecystitis, elevated LFTs, concern for choledocholithiasis N.p.o., surgical consultation, IV antibiotics, as needed pain medications. Daily LFTs, INR. There is mild scleral icterus. We will also obtain hepatitis panel. Patient used to be heavy drinker but has not been for over a year now. History of amphetamine abuse Quit amphetamines approximately 5 to 6 days ago, continue supportive care. DVT PPX: SCD Code status: Full Discharge Plan: Home Plan to discharge in: 48 Hours - Advance Directives Does patient have a Living Will: No Does patient have a Durable POA for Healthcare: No - Code Status/Comfort Care Code Status Assessed: Yes (Full code) Critical Care: No Time Spent Managing Pts Care (In Minutes): 55
[2022-12-21] MEDS ORDERED: HYDROMORPHONE HCL 0.5 MG/0.5 ML INJ ONE (20:34)
[2022-12-21 22:36] VITALS: BMI 20.6
[2022-12-21] MEDS: NA CHLORIDE 0.9% 1,000 ML IV SCH (22:37)
[2022-12-22] MEDS: PIPER TAZO 3.375 GM in NA CHLORIDE 0.9% 100 ML IV SCH ×3 (00:52→18:35)
[2022-12-22] MEDS: HYDROMORPHONE HCL 0.5 MG/0.5 ML INJ IV PRN ×4 (00:53→12:33)
[2022-12-22] MEDS: ONDANSETRON 4 MG (ODT) TAB PO PRN ×3 (01:01→11:26)
[2022-12-22 06:08] LABS: Hepatitis B Core IgM Nonreactive (Nonreactive); Hepatitis B surface AG Interp. Nonreactive (Nonreactive); Hepatitis C Virus Ab Nonreactive (Nonreactive)
[2022-12-22 06:28] LABS: Absolute Lymphocytes (CBC) 0.9 K/uL (0.7-4.9); Hematocrit 41.7 % (39.6-49.0); Lymphocytes % 9.1 % (15.3-44.8); MCV 93.9 fL (80-100); MPV 7.9 fL (7.6-11.3); Platelets 241 thou/uL (152-406); RBC Red Blood Cell Count 4.44 M/uL (4.33-5.43)
[2022-12-22 06:39] LABS: Protime INR 0.91
[2022-12-22 06:53] LABS: Albumin 3.4 g/dL (3.4-5.0); Bilirubin Total 3.5 mg/dL (0.2-1.0); Potassium 3.8 mEq/L (3.5-5.1); Protein, Total 6.8 g/dL (6.4-8.2)
[2022-12-22] MEDS: NA CHLORIDE 0.9% 1,000 ML IV SCH (07:10)
[2022-12-22] MEDS ORDERED: propofoL 200 MG/20 ML VIAL IV ONE (13:19)
[2022-12-22] MEDS ORDERED: FENTANYL CITR 250 MCG/5 ML ONE (13:19)
[2022-12-22] MEDS ORDERED: MIDAZOLAM HCL 2 MG/2 ML INJ ONE (13:19)
[2022-12-22] MEDS ORDERED: KETOROLAC 30 MG/ML INJ ONE (13:19)
[2022-12-22] MEDS ORDERED: LIDOCAINE 2% MPF 5 ML VIAL ONE (13:19)
[2022-12-22] MEDS ORDERED: ROCURONIUM 50 MG/5 ML VIAL IV ONE ×2 (13:20→16:00)
[2022-12-22] MEDS ORDERED: ONDANSETRON 4 MG/2 ML VIAL ONE (13:20)
--- NOTE | 2022-12-22 13:23 | P.PN ---
Subjective Date of Service: 12/22/22 Chief Complaint: Cholecystitis, elevated LFTs No acute events since admission. He reports severe right upper quadrant abdominal pain, graded 10/10 in severity. This has been associated with nausea. He denies any chest pain, palpitations, or shortness of breath. Review of Systems 10-point ROS is otherwise unremarkable Gastrointestinal: Nausea, Abdominal Pain Physical Examination - Vital Signs Temperature: 97.4 F Blood Pressure: 155/92 Pulse: 63 Respirations: 18 Pulse Ox (%): 94 - Physical Exam General: Alert, Oriented x3, Mild distress HEENT: Atraumatic, Mucous membr. moist/pink, Sclerae nonicteric Neck: JVD not distended Respiratory: Clear to auscultation bilaterally, Normal air movement Cardiovascular: No edema, Regular rate/rhythm, Normal S1 S2, No gallops, No rubs, No murmurs Gastrointestinal: Normal bowel sounds, Non-distended, No rebound, Tenderness (RUQ), Guarding Musculoskeletal: No clubbing Integumentary: No rashes Neurological: Normal speech, Normal affect - Studies Laboratory Data (last 24 hrs) 12/21/22 12/21/22 17:19 17:19 WBC 9.80 Hgb 16.0 Hct 47.4 Plt Count 286 Sodium 136 Potassium 3.8 BUN 12 Creatinine 0.99 Glucose 106 Total Bilirubin 3.3 H AST 159 H ALT 524 H Alkaline Phosphatase 156 H Lipase 23 Assessment And Plan - Plan # Acute Cholecystitis with Cholelithiasis/Choledocholithiasis # Elevated LFTs due to above # Concern for Gallbladder Malignancy - Radiology: - CT abdomen/pelvis = "cholelithiasis. Thickened gallbladder wall probably cholecystitis 2.5 centimeter density gallbladder fundus could represent sludge ball, mass or additional stones Mild dilatation of the intra and extrahepatic biliary tree." - US abdomen = "3.5 centimeter gallbladder mass may represent neoplasm. Several tiny gallstones. Mildly thickened gallbladder wall probably cholecystitis. Dilatation of the intra and extrahepatic biliary tree." - He has been made aware of the potential gallbladder malignancy. Pathology to be obtained post-operatively - General Surgery consulted - recommendations appreciated - Dr. Fontanez planning for cholecystectomy with intraoperative cholangiogram today - Continue Piperacillin-Tazobactam 3.375 g IV q8hr - Lactated Ringers' at 100 mL/hr - PRN pain control # Substance Use Disorder - Amphetamines - Substance cessation counseling Farhad Varner M.D.
--- NOTE | 2022-12-22 13:44 | P.CNS ---
Date of Consult: 12/22/22 PC: This 27-year-old male presented to the emergency room with severe right upper quadrant abdominal pain for diagnosis and treatment. HPC: Patient has been having abdominal pain off and on for the last few months. Last he began to have severe abdominal pain, radiating to his back, he could no longer stand and came to the ER for evaluation. PSHx: Negative PMHx: Denies any medical issues Social Hx: Allergic to latex Sys R: No cough, wheeze, shortness of breath. No chest pain or palpitations. Denies any urinary complaints O/E: Awake alert vital signs are stable HEENT: Not jaundiced Chest: Air entry equal bilaterally Abd: Tender in the right upper quadrant Beecher: Intact Data: Elevated liver enzymes, CT scan suggests numerous gallstones as confirmed by ultrasound. Impression: Acute on chronic cholecystitis with cholelithiasis, possible choledocholithiasis Plan: I will taken to the operating room for laparoscopic cholecystectomy with a cholangiogram. The risks of this procedure have been discussed. The possibility of bleeding, infection, injury to bile ducts blood vessels and intestines were explained. In this patient's particular case, the possibility of common bile duct stones were described. We will attempt to do a laparoscopic extraction. However if this is not accessible he may need a formal ERCP. He understands and wishes to proceed.
[2022-12-22] MEDS ORDERED: Ringers Lactate 1,000 ML IV ONE ×2 (13:51→14:54)
[2022-12-22] MEDS: Ringers Lactate 1,000 ML IV SCH ×2 (14:00→21:49)
[2022-12-22] MEDS ORDERED: dexAMETHasone 10 MG/ML VIAL ONE (14:16)
[2022-12-22] MEDS ORDERED: SUGAMMADEX SODIUM 200 MG/2 ML VIAL IV ONE (16:35)
--- NOTE | 2022-12-22 17:14 | P.OP ---
Preoperative diagnosis: Acute cholecystitis with cholelithiasis, possible choledocholithiasis Postoperative diagnosis: Acute cholecystitis with cholelithiasis, choledocholithiasis Primary procedure: Laparoscopic cholecystectomy Secondary procedure: Laparoscopic common bile duct exploration Other procedure(s): Intraoperative cholangiogram with fluoroscopy Anesthesia: General Estimated blood loss: Less than 20 cc Specimen: Gallbladder and contents Operative Technique: The patient brought the operating room placed supine on the table. After the induction of adequate general endotracheal anesthesia, there the abdomen was prepped with a DuraPrep solution, he was draped in the usual aseptic manner. A subumbilical incision was made. This was brought down through the skin and subcutaneous tissue. The Visiport was now used to enter the peritoneal cavity and created pneumoperitoneum to approximately 12 mmHg. Under direct vision a 5 mm trocar was placed in the upper midline, and 2 other fives on the right lateral side of the abdomen. With the patient in reverse Trendelenburg and rolled to the left side we were able to visualize the right upper quadrant. We could see an acutely inflamed gallbladder. An aspirating needle was used to remove his contents we could place a grasper on it. This having been done another grasper was placed by Dove's pouch. Applying lateral traction we were able to dissect out and expose both the cystic duct and artery. Having obtained the critical view, the cystic artery was clipped and divided. The cystic duct was then clipped at its junction with the gallbladder. An opening was made into the gallbladder through which we obtained a cholangiogram. The cholangiogram showed dilatation of the common bile duct, with no contrast going into the duodenum. The catheter was removed. We now passed the guidewire down through the opening in the cystic duct. We attempted to pass our spyglass but were unsuccessful. At this point the cystic duct was dilated after placing another 5 mm trocar out laterally. This we were able to now manipulate the spyglass camera through the cystic duct into the common bile duct. On entry into the common bile duct we could see numerous stones in the common bile duct itself. Passing the guidewire down through this with our basket we were able to break up the small stones as we progressed down towards the sphincter. We were able to actually pass the scope through the sphincter. On withdrawing we were able to break up the small stones and a lot of them to pass through the opening in the sphincter and flush them into the duodenum itself. We had probably 5 or 6 stones in the common bile duct. These were all addressed in a similar manner after fragmenting them they were washed into the small bowel. At this point the spyglass was withdrawn. We did a completion cholangiogram which demonstrated good flow of contrast into the duodenum, and once again showed dilated common bile duct. The catheter was now removed. The cystic duct was closed using 2 liquid ties placed using chromic. The cystic duct was now fully transected. The gallbladder was then dissected free from the liver bed, placed into an Endo Catch, and brought out through the umbilical trocar site. Attention was now turned towards the peritoneal cavity. Our irrigating fluid was aspirated using the suction device. The area was inspected to ensure adequate hemostasis. The umbilical trocar site was now approximated with the Endo Close. The pneumoperitoneum was then collapsed, the sutures tied, and dixie applied to the skin. At the end of the procedure he was in a stable complaint sent to the recovery room. Needle sponge instrument count were correct. No drains were placed. Complications: None Transferred to: Recovery Room Condition: Good
--- NOTE | 2022-12-22 17:17 | RAD REPORT ---
EXAM DESCRIPTION: RADCholangiogram Oper-Xray Or12/22/2022 4:59 pm CLINICAL HISTORY: Abdominal pain FINDINGS: The examination was performed by Dr. Fontanez. The cystic duct was cannulated and contrast administered. Contrast flowed into the duodenum. The common bile duct is dilated Fluoroscopy time 0.8 minutes. Nine fluoroscopic spot images obtained
[2022-12-22] MEDS: MEPERIDINE HCL 25 MG/ML SYR ONE ×2 (17:25→17:31)
[2022-12-22 18:27] VITALS: O2SAT 99
--- NOTE | 2022-12-22 20:32 | P.PN ---
Date of Service: 12/23/22 Subjective: 12/23 note ROS: 10 point ROS as noted above, otherwise negative Physical Exam: GEN: Alert, oriented, NAD HEENT: Normal conjunctiva, sclera anicteric CV: Regular rate & rhythm, no edema Pulm: Nonlabored respiraitons on room air ABD: Soft, nondistended, RUQ tenderness, Dressing in place MSK: No joint tenderness Integumentary: No rashes Neuro: Normal speech, normal affect Problem List: 1. Acute cholecystitis with cholelithiasis, choledocholithiasis, now s/p lap cholecystectomy (12/22) 2. Elevated LFTs d/t above 3. Concern for Gallbladder Malignancy 4. Substance use disorder- amphetamines PLAN CT abdomen/pelvis (12/21): =cholelithiasis. Thickened gallbladder wall probably cholecystitis 2.5 centimeter density gallbladder fundus could represent sludge ball, mass or additional stones Mild dilatation of the intra and extrahepatic biliary tree. abdominal u/s (12/21): 3.5cm gallbladder mass may represent neoplasm. Several tiny gallstones. Mildly thickened gallbladder wall probably cholecystitis. Dilatation of the intra and extrahepatic biliary tree. - He has been made aware of the potential gallbladder malignancy. Pathology to be obtained post-operatively General Surgery consulted s/p lap rose marie with intraoperative cholangiogram (12/22) Continue Zosyn Continue Lactated Ringers' at 100 mL/hr Continue PRN pain medication Substance cessation counseling Code: Full Dispo: Home
[2022-12-22] MEDS: HYDROCODONE/APAP 7.5/325 MG TAB PO PRN (21:57)
[2022-12-23] MEDS: PIPER TAZO 3.375 GM in NA CHLORIDE 0.9% 100 ML IV SCH ×2 (01:05→08:33)
[2022-12-23] MEDS: HYDROMORPHONE HCL 0.5 MG/0.5 ML INJ IV PRN ×3 (02:16→13:17)
[2022-12-23 03:36] LABS: Protime INR 1.02
[2022-12-23 03:37] LABS: Absolute Lymphocytes (CBC) 0.7 K/uL (0.7-4.9); Hematocrit 39.2 % (39.6-49.0); Lymphocytes % 4.8 % (15.3-44.8); MCV 93.4 fL (80-100); MPV 8.5 fL (7.6-11.3); Platelets 241 thou/uL (152-406)
[2022-12-23 03:53] LABS: Albumin 3.1 g/dL (3.4-5.0); Bilirubin Direct 1.1 mg/dL (0-0.2); Bilirubin Total 1.9 mg/dL (0.2-1.0); Magnesium 1.6 mg/dL (1.6-2.4); Potassium 3.9 mEq/L (3.5-5.1); Protein, Total 6.5 g/dL (6.4-8.2)
[2022-12-23] MEDS ORDERED: MAGNESIUM HYDROXIDE 8% 30 ML PO ONE (03:56)
[2022-12-23] MEDS: HYDROCODONE/APAP 7.5/325 MG TAB PO PRN ×3 (04:10→16:24)
[2022-12-23] MEDS ORDERED: MAGNESIUM SULFATE 1 gm IVPB 1 GM/100 ML BAG IV ONE (05:08)
[2022-12-23] MEDS: Ringers Lactate 1,000 ML IV SCH (05:16)
[2022-12-23] MEDS ORDERED: POTASSIUM CL SA 10 MEQ TAB PO ONE (09:00)
[2022-12-23 09:01] VITALS: BP 147/88; TEMP 98.2
--- NOTE | 2022-12-23 14:25 | P.PN ---
Date of Service: 12/23/22 S: Patient is having some abdominal discomfort, but able to move around, voiding well on his own. Improved since yesterday. O: Vital signs are stable, abdomen is soft, bilirubin is coming down. A: S/p laparoscopic cholecystectomy with common bile duct exploration for choledocholithiasis P: I will discharge the patient today. He has been instructed on diet. We advised him about his pain medication. He has been told to use a laxative for constipation. Diet was discussed. He will ambulate and use his incentive spirometer at home. He knows should he have any questions or problems to contact my office or go to the emergency room. He will be seeing me next week for his dixie out, and he is to call for an appointment on or Thursday of this week.
== END 2022-12-23 16:28 | disposition home or self-care (01) | DRG 412 ==
LOC: ER 16:51 → ERHOLD 20:18 → 2ND 21:04
PROVIDERS: ADMIT Internal Medicine; ATTEND Hospitalist
PROC: 0FJB4ZZ Inspection of Hepatobiliary Duct, Percutaneous Endoscopic Approach (ICD-10-PCS; 2022-12-22)
PROC: BF121ZZ Fluoroscopy of Gallbladder using Low Osmolar Contrast (ICD-10-PCS; 2022-12-22)
PROC: 0FT44ZZ Resection of Gallbladder, Percutaneous Endoscopic Approach (ICD-10-PCS; principal; 2022-12-22 13:00)
DX: K80.00 Calculus of gallbladder with acute cholecystitis without obstruction (principal); C23 Malignant neoplasm of gallbladder; F15.20 Other stimulant dependence, uncomplicated; K80.42 Calculus of bile duct with acute cholecystitis without obstruction; R94.5 Abnormal results of liver function studies; Z87.891 Personal history of nicotine dependence; Z71.51 Drug abuse counseling and surveillance of drug abuser; Z91.040 Latex allergy status
CPT/HCPCS: 36415; 71045; 74177; 74300; 76705; 80053; 80061; 80074; 81001; 82248; 83690; 83735; 85025; 85610; 88304; 94010; 96361; 96374; 96375; 99285; J1100; J1170; J2001; J2175; J2250; J2405; J2543; J2704; J3010; J3475; J7030; J7120; Q0162; Q9967

== ENCOUNTER 2023-10-18 03:47 | Emergency (ER) | payer OTHER ==
[2023-10-18 04:23] LABS: Specific Gravity < 1.005 (1.005-1.030); Urine Bilirubin NEGATIVE (Negative); Urine Blood Negative (Negative); Urine Clarity Clear (Clear); Urine Color Colorless (Yellow); Urine Glucose NEGATIVE (Negative); Urine Ketones NEGATIVE (Negative); Urine Microscopic Reflex YN NO UMIC; Urine Nitrite NEGATIVE (Negative); Urine Protein NEGATIVE (Negative); Urine Urobilinogen Normal (Normal); Urine pH 5.5 (5.0-7.0)
[2023-10-18 04:24] LABS: Absolute Eosinophils 0.1 K/uL (0-0.5); Absolute Lymphocytes (CBC) 1.5 K/uL (0.7-4.9); Absolute Monocytes 0.4 K/uL (0.1-1.3); Absolute Neutrophil 4.6 K/uL (1.8-8.0); Basophils % 0.5 % (0-1.3); Eosinophils % 0.8 % (0-4.4); Hematocrit 40.3 % (39.6-49.0); Lymphocytes % 22.5 % (15.3-44.8); MCH 32.6 pg (27.0-35.0); MCHC 34.7 g/dL (32.0-36.0); MCV 94.1 fL (80-100); Monocytes % 5.6 % (3.3-12.3); Neutrophils % 70.6 % (41.7-73.7); Platelets 229 thou/uL (152-406); RBC Red Blood Cell Count 4.28 M/uL (4.33-5.43); Red Cell Distribution Width 12.9 % (12.1-15.2)
[2023-10-18] MEDS ORDERED: ONDANSETRON 4 MG/2 ML VIAL ONE (04:24)
[2023-10-18] MEDS ORDERED: NA CHLORIDE 0.9% 1,000 ML ONE (04:24)
[2023-10-18 04:38] LABS: Barbiturates NEGATIVE (NEGATIVE); Benzodiazepines NEGATIVE (NEGATIVE); Cocaine NEGATIVE (NEGATIVE); METHAMPHETAM POSITIVE (NEGATIVE); Methadone NEGATIVE (NEGATIVE); Opiates NEGATIVE (NEGATIVE); Phencyclidine NEGATIVE (NEGATIVE); THC Cannibis NEGATIVE (NEGATIVE)
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
[2023-10-18 17:37] VITALS: BP 100/67; O2SAT 99
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
== END 2023-10-18 17:01 | disposition home or self-care (01) ==
LOC: ER 03:47
DX: F10.129 Alcohol abuse with intoxication, unspecified (principal); V49.9XXA Car occupant (driver) (passenger) injured in unspecified traffic accident, initial encounter; F15.10 Other stimulant abuse, uncomplicated; R45.851 Suicidal ideations
CPT/HCPCS: 85025; 80048; 36415; 86900; 86850; 86901; 81003; 80307; 70450; 72125; 71260; 74177; 51702; 96374; 99285; 80143; 80179; 82077; Q9967; J2405; J7030